=== PATIENT | male | born 1950 | race Caucasian/White ===

== ENCOUNTER 2024-02-06 00:35 | Emergency (ER) | payer OTHER, SELFPAY ==
--- NOTE | 2024-02-06 00:30 | RT.EKG_ITS ---
APPROVED REPORT Exam: Resting ECG Reason for Exam: SOB Patient Location: E HR:113 bpm ECG Measurements Heart Rate 113 AXIS OK 150 P 13 QRSd 88 QRS -48 QT 381 T 76 QTc 522 Conclusion Sinus tachycardia with PACs Left anterior fascicular block...axis(240,-40), init forces inf Prolonged QT interval...QTc >500mS
[2024-02-06 00:35] VITALS: BP 92/63; PULSE 99; RESP 20; TEMP 36.4; O2SAT 86
[2024-02-06 00:37] VITALS: O2SAT 88
[2024-02-06 00:40] VITALS: PULSE 94; RESP 23; O2SAT 88
[2024-02-06 00:43] VITALS: BP 92/63; PULSE 88; RESP 14; RESP 20; TEMP 36.4; O2SAT 86
[2024-02-06 00:49] VITALS: BP 92/63; PULSE 93; RESP 14; O2SAT 94
[2024-02-06 00:50] VITALS: PULSE 97; RESP 16; O2SAT 94
--- NOTE | 2024-02-06 01:00 | W.ED.GENAD ---
Discharge Plan Disposition Patient Disposition: Discharge Details Chief Complaint: Chest Pain Clinical Impression: Acute coronary syndrome with high troponin, Cardiac arrest due to underlying cardiac condition Primary Care Provider: None,None ED Provider: Peng Burns Home Meds and New Rx's Prescriptions: No Action aspirin [Adult Low Dose Aspirin] 81 mg tablet,delayed release (DR/EC) 81 mg PO DAILY finasteride 5 mg tablet 5 mg PO DAILY tamsulosin [Flomax] 0.4 mg capsule 0.4 mg PO DAILY Discharge Data Cause of : Cardiac arrest due to underlying cardiac condition Discharge Physician: Peng Burns [facility] General Date/Time Provider Initiated Documentation: 02/06/24 00:40. HPI Narrative: The patient is a 74-year-old male, with no significant past medical history, who presents to the emergency department this evening complaining of intermittent bouts of chest discomfort since November of this year (several months). The patient states that the discomfort is a significant but dull pain in the upper chest at the base of his neck that radiates posteriorly into his back between his shoulder blades. Patient states that the symptoms developed whenever he exerts himself in any significant way such as walking to his mailbox or going upstairs. Typically he will rest and the symptoms will subside. Tonight he went to bed and got in bed at around 11:00 but the symptoms would not resolve and were consistent and more severe than typical. After the symptoms been ongoing for approximately 2 hours, the patient decided come to the emergency room for evaluation and called EMS. When EMS found him, he was reportedly ashen and diaphoretic with an oxygen saturation in the mid 80s. The patient reports no significant shortness of breath or cough associated with his symptoms. The patient does state that he has been having some chills and his tells me that he sweated through his bathroom this morning. Patient denies any nausea, vomiting, or other GI symptoms. The patient has no history of lung disease and has never been a smoker. 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 Symptoms improved with aspirin and sublingual nitroglycerin on the way to the emergency room, but they are still somewhat present. Related Data Home Medications Medication Instructions Recorded Confirmed aspirin 81 mg tablet,delayed 81 mg PO DAILY 02/06/24 02/06/24 release (Adult Low Dose Aspirin) finasteride 5 mg tablet 5 mg PO DAILY 02/06/24 02/06/24 tamsulosin 0.4 mg capsule (Flomax) 0.4 mg PO DAILY 02/06/24 02/06/24 Allergies Allergy/AdvReac Type Severity Reaction Status Date / Time No Known Allergies Allergy Unverified 02/06/24 01:00 General Stated Complaint: Chest Pain MARY: 3 Exam Const General: cooperative and no acute distress Nutritional Appearance: average body habitus Neck Neck: normal visual inspection, full ROM and no JVD Chest Chest: normal inspection of the chest and no tenderness Resp Effort & Inspection: normal respiratory effort and no cough Auscultation: clear to auscultation bilaterally Cardio Rate: regular rate Rhythm: regular rhythm Heart Sounds: S1 normal and S2 normal GI Palpation: soft and nontender Auscultation: normal bowel sounds Skin General skin exam: no rashes or lesions noted, turgor normal and dry skin Neuro General: patient oriented x3, moves all extremities, normal light touch, pain and propioception, no focal motor deficits and CN's II-XI intact bilaterally Extrem Right lower extremity: full ROM and edema Details: non-pitting and 1+ Left lower extremity: full ROM and edema Details: non-pitting and 1+ Psych Mental Status: mental status grossly normal Mood: anxious mood Affect: normal affect Course Vital Signs Vital signs: Vital Signs Temperature 36.4 C L 02/06/24 00:35 Pulse 99 H 02/06/24 00:35 Respiratory Rate 20 02/06/24 00:35 Blood Pressure 92/63 L 02/06/24 00:35 Pulse Oximetry 86 L 02/06/24 00:35 Temperature 36.4 C L 02/06/24 00:43 Temperature Source Tympanic 02/06/24 00:35 Pulse 93 H 02/06/24 00:49 Pulse 97 H 02/06/24 00:50 Respiratory Rate 16 02/06/24 00:50 Respiratory Effort Normal 02/06/24 00:43 Respiratory Depth Normal 02/06/24 00:43 Respiratory Pattern Normal 02/06/24 00:43 Blood Pressure 92/63 L 02/06/24 00:49 Blood Pressure Mean 71 02/06/24 00:49 Blood Pressure Position Supine 02/06/24 00:35 Pulse Oximetry 94 02/06/24 00:50 Oxygen Delivery Method Room Air 02/06/24 00:35 Oxygen Flow Rate 0 02/06/24 00:35 Pain Level 6 02/06/24 00:43 Procedures Intubation Time out performed: No sedative: Etomidate Mg Given: 10 paralytic: Rocuronium Mg Given: 100 Laryngoscope: other (Glidescope mac 3) ET Tube Size: 7.5 ET Tube Uncuffed: Yes Tube Secured Depth (cm): 25 Tube Secured Location: teeth Tube Placement Confirmation: visualized tube passing through cords, equal breath sounds bilaterally, no breath sounds over epigastrum and confirmation by capnometry Patient Tolerated Procedure: no complications Intubation Complications: none Medical Decision Making The patient was seen and examined. His EKG presents a sinus tachycardia with likely some intermittent PACs. There is an anterior fascicular block present and some T wave flattening in the lateral limb leads. There is a ST segment anomaly in V1 and V2, but there is nothing that would be obviously defined as pattern injury myocardial ischemia. The patient's chest pain is typical for unstable angina with exertion, however. Also concerning is the significant hypoxia that the patient is experiencing, despite any overt respiratory symptoms otherwise. The patient will undergo a workup for myocardial ischemia including serial troponins, CTA to exclude PE or other severe underlying lung disease, and possible GI disease from biliary tract or gastroesophageal reflux. Patient was given a series of medications that was designed to relieve pain, dilate the blood vessels, and help alleviate any contribution from esophagitis. The patient will most likely require admission to the hospital for further diagnosis and management, especially given that he is requiring supplemental oxygen to maintain a normal oxygen saturation. At 1:20 AM, the patient began to suffer from hypotension, PEA, and an agonal respiratory pattern. The patient began ACLS using the PEA protocol, with intubation, CPR, and multiple medications given in a ACLS format for medical code. Please see the code sheet recorder for a list of all the medications and therapies that were given. Ultimately, the patient continued in a PEA rhythm with a wide base tachycardia that was resistant to multiple rounds of medications, shocking, and respiratory supportive care. The patient developed asystole and had a cardiac ultrasound which revealed no contraction of the myocardial schulz. The patient was pronounced at 1:59 AM. The was present in the room for the entirety of the code. The infertility medical assistant's office was contacted and declined the case. I filled out the [facility] registry with the demographic and probation regarding the patient's . Quality:SDOH Health Related Social Needs: No Data to Display Critical Care Time Critical Care Time Critical Care Time: Yes Total Critical Care Time: 39 Attestation: The patient required critical care for intubation, ACLS for PEA resuscitation. The time posterior does not represent teaching or procedural time. I was present during the entirety of the code and critical care billing time cycle. PFSH All Active Problems (Updated 02/06/24 @ 03:16 by Peng Burns MD) Cardiac arrest due to underlying cardiac condition (Acute) Acute coronary syndrome with high troponin (Acute) Social History Smoking/Tobacco Use Status: Never Smoking risk assessment performed?: Yes Alcohol Intake: current Alcohol type: beer POCUS Exam (ED) Limited Cardiac Exam DATE OF EXAM: 02/06/24 TIME OF EXAM: 01:59 PROVIDER THAT PERFORMED THE STUDY: Peng Burns IS THIS A REPEAT EXAM DURING THIS ENCOUNTER: Yes, Same provider REASON FOR EXAM: Cardiac arrest VISUALIZED STRUCTURES: Four Chambers VIEW OBTAINED: Subxiphoid PERTINENT FINDINGS/IMPRESSION: Other (absence of myocardial contractility) asystole cardiac arrest Exam complete
[2024-02-06 01:05] LABS: Abs Immature Grans 0.05 10^3/uL (0.0-0.06); Absolute Basophil Count 0.06 10^3/uL (0.0-0.2); Absolute Eosinophil Count 0.17 10^3/uL (0.0-0.7); Absolute Monocyte Count 0.75 10^3/uL (0.1-0.8); Basophils % 0.5 %; Eosinophils % 1.5 %; HCT 52.5 % (40.0-50.0); HGB 17.7 g/dL (13.5-17.5); Immature Grans % 0.4 %; Lymphocytes % 14.1 %; MCH 31.4 pg (27.0-33.0); MCHC 33.7 % (32.0-36.0); MCV 93 fL (80-95); MPV 10.2 fL (8.0-11.0); Monocytes % 6.6 %; Neutrophils % 76.9 %; Platelet Count 214 10^3/uL (130-400); RBC 5.64 10^6/uL (4.36-5.78); RDW 13.5 % (11.8-14.1); RDW-SD 46.2 fL; WBC 11.34 10^3/uL (4.4-10.8)
[2024-02-06 01:06] LABS: Absolute Neutrophil Count 8.72 10^3/uL (1.2-6.7)
[2024-02-06] MEDS: Ondansetron 4 MG/2 ML VIAL IVP (01:10)
[2024-02-06] MEDS: nitroGLYcerin 2% 1 INCH/1 GM PKT TP (01:10)
[2024-02-06 01:13] LABS: PTT Activated 20.9 sec (23.6-32.8); Prothrombin Time 10.1 sec (9.1-11.1)
[2024-02-06] MEDS: MORPHine 10 MG/ML VIAL 4 MG IVP (01:13)
[2024-02-06] MEDS: EPINEPHrine 1 MG/10 ML SYR IVP (01:22)
[2024-02-06 01:23] LABS: ALT 20 U/L (16-63); AST 32 U/L (15-37); Albumin 3.5 g/dL (3.4-5.0); Alkaline Phosphatase 76 U/L (46-116); Anion Gap 9.5 mmol/L (3-11); BUN 21 mg/dL (7-18); Bilirubin, Total 1.5 mg/dL (0.2-1.0); CO2 25.5 mmol/L (21.0-32.0); CREATININE 1.2 mg/dL (0.70-1.30); Calcium 8.4 mg/dL (8.5-10.1); Chloride 106 mmol/L (98-107); Estimated GFR 62.67 (mL/min/1.73m2); Glucose 159 mg/dL (74-106); Magnesium 1.9 mg/dL (1.8-2.4); NT-proBNP 4775 pg/mL (<300); Potassium 3.8 mmol/L (3.5-5.1); Sodium 141 mmol/L (136-145); Total Protein 6.1 g/dL (6.4-8.2)
[2024-02-06 01:24] LABS: Troponin I 1428 ng/L (< or =60)
[2024-02-06] MEDS: Etomidate 20 MG/10 ML VIAL IVP (01:29)
[2024-02-06] MEDS: Rocuronium 50 MG/5 ML SYR IVP (01:30)
[2024-02-06] MEDS: Calcium Gluconate 4.65 MEQ/10 ML VIAL 4.65 MG IVP (01:36)
[2024-02-06] MEDS: MAGNESIUM SULFATE 2 GM/50 ML BAG IVINF (01:39)
[2024-02-06] MEDS: DOPamine 400 MG/250 ML BAG 16.5 MG IV (01:43)
[2024-02-06] MEDS: Sodium Bicarbonate 50 MEQ/50 ML SYR IVP (01:44)
[2024-02-06] MEDS: Tenecteplase 50 MG KIT IVP (01:51)
[2024-02-06] MEDS: Dextrose 50%-Water 25 GM/50 ML SYR IVP (01:51)
[2024-02-06] MEDS: EPINEPHrine 1 MG/10 ML SYR (01:54)
--- NOTE | 2024-02-06 02:41 | NUR.NOTE ---
Working pt up for DDX of GI/ACS. Had been receiving IV fluid. TOTAL fluid received 500 CC NS. At 01:50, pt became went unresponsive spontaneously. Called for assistance. Code called at 0120. 01:20 CPR started 01:22 Pulse check/Rhythm check. PEA 01:22 1 mg Epi 01:24 Pulse/rhythm check - PEA 01:25 1 mg Epi - RASTA applied for compressions. 01:26 Right AC IV dislodged, restarted with 18 in right wrist, Secured with Coban 01:29 ROSC 01:29 10 Mg Etoimidate, 50 mg Rocuronium 01:30 50mg rocuronium 01:32 Intubation by physician. 7.5 ETT, 22 lips, RT present. Capnography/ETCO2 initiated 01:34 Pt arrested again. PEA arrest. CPR initiated. 01:36 1 mg Epinephrine and 1 g Calcium gluconate 01:38 Defibrillation 200 J 01:39 1 mg Epinephrine - 2 grams of mag sulfate 01:40 Pulse Check - PEA resume CPR 01:42 Pulse Check - PEA 01:42 1 mg Epi 01:43 Dopamine 5 mcg/kg/min 01:44 Pulse check - 1 mg Epi and 50 mEq Sodium Bicarb 01:46 Pulse check - PEA 01:46 Dopamine increased to 10 mcg/kg/min 01:48 Pulse Check - PEA 01:48 Dopamine inc 20 mcg/kg/min 01:50 Pulse Check - PEA 01:50 1 mg Epi, Dopamine increased to 30 mcg/kg/min 01:51 25 g D50 and 50 mg TNK 01:53 Pulse check - PEA 01:54 1 mg epinephrine 01:56 Pulse check - PEA 01:58 Pulse check - PEA 01:58 100 mg Lidocaine 01:59 Asystole - TOD called. Hotel Operation Manager with pts , cleaned up pt, called [facility] and NEDS. NEDS accepted by [facility]. [place] provided with [place] [facility] [place]
--- NOTE | 2024-02-06 08:33 | NUR.NOTE ---
Nursing Note:Pharmacy had a question about documentation of medications
== END 2024-02-06 04:01 | disposition expired ==
PROVIDERS: Emergency Provider Emergency Medicine Emergency Medical Services
DX: I24.9 Acute ischemic heart disease, unspecified (principal); R79.89 Other specified abnormal findings of blood chemistry; I46.2 Cardiac arrest due to underlying cardiac condition; I44.4 Left anterior fascicular block; Z79.82 Long term (current) use of aspirin; R00.0 Tachycardia, unspecified; R09.02 Hypoxemia
CPT/HCPCS: 31500; 80053; 92950; 93005; 93308; 96374; 96375; 99291; 83735; 83880; 84484; 85025; 85610; 85730; 93010; J0612; J1265; J2003; J2270; J2405; J3101; J3475